=== PATIENT | male | born 1955 | race Caucasian/White ===

== ENCOUNTER 2016-12-12 | Emergency (ER) | payer SELFPAY ==
[~2016-12-12] VITALS: Ht 185.4 cm; Wt 106.6 kg
[2016-12-12 03:46] VITALS: BP 139/90
== END 2016-12-12 03:46 | disposition home or self-care (01) ==
LOC: ER 00:11
DX: S86.912A Strain of unspecified muscle(s) and tendon(s) at lower leg level, left leg, initial encounter (principal); W01.0XXA Fall on same level from slipping, tripping and stumbling without subsequent striking against object, initial encounter; Y93.89 Activity, other specified; Y99.8 Other external cause status; Y92.89 Other specified places as the place of occurrence of the external cause
CPT/HCPCS: 73562

== ENCOUNTER 2021-03-03 09:43 | Emergency (ER) | payer BC, OTHER ==
[~2021-03-03] VITALS: Ht 188 cm; Wt 114.8 kg
[2021-03-03 09:48] VITALS: BP 159/98
== END 2021-03-03 11:35 | disposition home or self-care (01) ==
LOC: ER 09:43
DX: S86.912A Strain of unspecified muscle(s) and tendon(s) at lower leg level, left leg, initial encounter (principal); X58.XXXA Exposure to other specified factors, initial encounter; Y93.89 Activity, other specified; Y99.8 Other external cause status; Y92.89 Other specified places as the place of occurrence of the external cause
CPT/HCPCS: 73562

== ENCOUNTER 2024-01-13 12:58 | Emergency (ER) | payer BC, OTHER ==
[~2024-01-13] VITALS: Ht 185.4 cm; Wt 107.0 kg
[2024-01-13 13:34] LABS: Basophils # (auto) 0.1 10 ^3/uL (0-0.2); Eosinophils # (auto) 0.3 10 ^3/uL (0-0.8); Eosinophils % (auto) 3.2 % (0.0-7.0); Hematocrit 45.8 % (41.0-53.0); Hemoglobin 15.7 g/dL (13.5-17.5); Lymphocytes # (auto) 2.3 10 ^3/uL (0.4-5.4); Lymphocytes % (auto) 24.5 % (10.0-50.0); Mean Corpuscular Hemoglobin 32.5 pg (28.0-32.0); Mean Corpuscular Hgb Conc. 34.3 g/dL (32.0-36.0); Monocytes # (auto) 0.7 10 ^3/uL (0-1.3); Monocytes % (auto) 7.9 % (0.0-12.0); Neutrophils # (auto) 5.9 10 ^3/uL (1.6-8.6); Neutrophils % (auto) 63.4 % (37.0-80.0); Red Blood Cells 4.82 10^6/uL (4.5-5.90); Red Cell Distribution Width 13.4 % (11.8-14.3); White Blood Cell 9.3 10^3/uL (4.4-10.8)
[2024-01-13 13:43] LABS: Chloride 109 mmol/L (98-107); Sodium 141 mmol/L (136-145)
[2024-01-13 13:44] LABS: Anion Gap 8 (5-15); Calcium 9.4 mg/dL (8.5-10.1); Carbon Dioxide 24 mmol/L (20-30)
[2024-01-13 13:49] LABS: BUN/Creatinine Ratio 15.7 (10.0-20.0); Blood Urea Nitrogen 17 mg/dL (9-23); Glucose 103 mg/dL (74-106)
[2024-01-13] MEDS: MECLIZINE HCL 25 MG TAB PO ONE (14:08)
[2024-01-13] MEDS: cloNIDine HCL 0.1 MG TAB PO ONE (14:08)
[2024-01-13] MEDS ORDERED: MECL1TAB42 PO (14:11)
[2024-01-13 15:13] VITALS: BP 146/91; PULSE 69; RESP 18; TEMP 98.2; O2SAT 97
== END 2024-01-13 15:15 | disposition home or self-care (01) ==
LOC: ER 12:58
DX: H81.90 Unspecified disorder of vestibular function, unspecified ear (principal); R51.9 Headache, unspecified
CPT/HCPCS: 36415; 70450; 80048; 84484; 85025; 93005; 99284; J8597

== ENCOUNTER 2024-03-04 20:02 | Inpatient (IN) | payer OTHER ==
[~2024-03-04] VITALS: Ht 185.4 cm; Wt 110.5 kg
[~2024-03-04 20:02] MED LIST: MECL1TAB42 PO
[2024-03-04 20:30] VITALS: PULSE 93; RESP 15; O2SAT 97
[2024-03-04 21:06] LABS: Basophils # (auto) 0.1 10 ^3/uL (0-0.2); Basophils % (auto) 1.2 % (0.0-2.0); Eosinophils # (auto) 0.3 10 ^3/uL (0-0.8); Eosinophils % (auto) 3.7 % (0.0-7.0); Hematocrit 43.6 % (41.0-53.0); Hemoglobin 14.8 g/dL (13.5-17.5); Lymphocytes # (auto) 2.7 10 ^3/uL (0.4-5.4); Lymphocytes % (auto) 32.2 % (10.0-50.0); Mean Corpuscular Hemoglobin 32.5 pg (28.0-32.0); Mean Corpuscular Volume 95.4 fL (80.0-100.0); Monocytes # (auto) 0.7 10 ^3/uL (0-1.3); Monocytes % (auto) 8.8 % (0.0-12.0); Neutrophils # (auto) 4.5 10 ^3/uL (1.6-8.6); Neutrophils % (auto) 54.1 % (37.0-80.0); Red Blood Cells 4.57 10^6/uL (4.5-5.90); Red Cell Distribution Width 13.1 % (11.8-14.3); White Blood Cell 8.4 10^3/uL (4.4-10.8)
[2024-03-04 21:18] LABS: INR 1.01 (0.9-1.15); Partial Thromboplastin Time 25.6 SEC (24.5-34.5); Prothrombin Time 10.7 sec (9.3-11.8)
[2024-03-04 21:25] LABS: Alanine Aminotransferase 30 U/L (7-40); Alkaline Phosphatase 71 U/L (46-116); Anion Gap 7 (5-15); Aspartate Aminotransferase 27 U/L (13-40); BUN/Creatinine Ratio 15.1 (10.0-20.0); Bilirubin, Total 0.4 mg/dL (0.2-1.0); Blood Urea Nitrogen 16 mg/dL (9-23); Calcium 9.1 mg/dL (8.5-10.1); Carbon Dioxide 26 mmol/L (20-30); Chloride 108 mmol/L (98-107); Glucose 150 mg/dL (74-106); Potassium 3.8 mmol/L (3.5-5.1); Sodium 141 mmol/L (136-145); Total Protein 6.8 g/dL (5.7-8.2)
[2024-03-04 21:29] LABS: Lactic Acid w/Reflex 2.1 mmol/L (0.4-2.0)
[2024-03-04 23:02] LABS: Urine Bacteria None Seen /hpf (None Seen)
[2024-03-04 23:13] LABS: Urine Blood Negative /uL (Negative); Urine Clarity Clear (Clear); Urine Color Light-Yellow (Yellow); Urine Protein, UAD Negative (Negative); Urine Specific Gravity 1.018 (1.001-1.035); Urine Urobilinogen Normal (Negative); Urine WBC 5 /hpf (0 - 3)
[2024-03-04] MEDS ORDERED: ACETAMINOPHEN 325 MG TAB PO PRN (23:15)
[2024-03-04] MEDS ORDERED: DEXTROSE (50%) 50ML SYRG IV PRN (23:15)
[2024-03-04] MEDS ORDERED: ONDANSETRON HCL 4 MG/2 ML VIAL IV PRN (23:15)
[2024-03-04 23:32] LABS: Amphetamine Screen, Urine Neg (NEGATIVE); Barbiturate Scree,Urine Neg (NEGATIVE); Benzodiazephine Screen, Urine Neg (NEGATIVE)
[2024-03-04 23:33] LABS: Cannabinoid Screen, Urine Neg (NEGATIVE); Cocaine Screen, Urine Neg (NEGATIVE); Opiate Scree,Urine Neg (NEGATIVE); Phencyclidine Screen, Urine Neg (NEGATIVE)
[2024-03-05] VITALS (9 sets, daily range): BP systolic 124–164; BP diastolic 72–100; PULSE 62–92; RESP 10–20; TEMP 97.7–98.3; O2SAT 94–97
[2024-03-05] MEDS ORDERED: FINA5TAB4 PO (04:36)
[2024-03-05] MEDS ORDERED: METF-370 PO (04:36)
[2024-03-05] MEDS ORDERED: TAMS0.4C36 PO (04:36)
[2024-03-05] MEDS: ACCU-CHEK COMFORT CURVE STRIP VI SCH (06:33)
[2024-03-05] MEDS: InsuLIN REG 1unit/0.01ml Soln (100units/ml) SC SCH (06:34)
[2024-03-05 06:55] LABS: Magnesium 1.7 mg/dL (1.6-2.6)
[2024-03-05 07:19] LABS: Anion Gap 7 (5-15); Carbon Dioxide 26 mmol/L (20-30); Chloride 109 mmol/L (98-107); Potassium 3.9 mmol/L (3.5-5.1); Sodium 142 mmol/L (136-145)
[2024-03-05 07:20] LABS: Calcium 8.9 mg/dL (8.5-10.1)
[2024-03-05 07:25] LABS: BUN/Creatinine Ratio 12.4 (10.0-20.0); Blood Urea Nitrogen 12 mg/dL (9-23); Glucose 114 mg/dL (74-106)
[2024-03-05] MEDS: ENOXAPARIN SOD 40 MG/0.4 ML SYRINGE SC SCH (09:19)
[2024-03-05] MEDS: PANTOPRAZOLE 40 MG/10 ML VIAL INJ IV SCH (09:20)
[2024-03-05] MEDS: TAMSULOSIN HYDROCHLORIDE 0.4 MG CAP PO SCH (17:48)
[2024-03-05] MEDS ORDERED: GABA-1308 PO (17:49)
[2024-03-06] VITALS (8 sets, daily range): BP systolic 122–158; BP diastolic 72–82; PULSE 68–78; RESP 18–22; TEMP 36.4; O2SAT 93–98
[2024-03-06] MEDS ORDERED: hydrALAZINE HCL 20 MG/ML VL IV PRN (09:00)
[2024-03-06] MEDS: LISINOPRIL 20 MG TAB PO SCH (09:57)
[2024-03-06] MEDS: FAMOTIDINE 20 MG TAB PO SCH (09:57)
[2024-03-06] MEDS: FINASTERIDE 5 MG TAB PO SCH (09:58)
[2024-03-06] MEDS: MAGNESIUM SULFATE 1GM/100ML 100 ML IV ONE (09:58)
[2024-03-06] MEDS ORDERED: LOS25T PO (15:07)
[2024-03-07 12:24] LABS: Hepatitis B Surface Antigen Negative (Negative); Hepatitis C Antibody Negative (Negative)
== END 2024-03-06 18:21 | disposition home or self-care (01) | DRG 305 ==
LOC: ER 20:02 → EDBD 20:02 → TELE 23:11 → TELE-WESTW 23:11
PROVIDERS: ADMIT Nurse Practitioner Family; ATTEND Nurse Practitioner Family
DX: I16.0 Hypertensive urgency (principal); I44.2 Atrioventricular block, complete; R00.1 Bradycardia, unspecified; E11.9 Type 2 diabetes mellitus without complications; N40.0 Benign prostatic hyperplasia without lower urinary tract symptoms; E66.9 Obesity, unspecified; Z87.442 Personal history of urinary calculi; Z87.891 Personal history of nicotine dependence; Z79.84 Long term (current) use of oral hypoglycemic drugs; Z82.3 Family history of stroke; Z82.49 Family history of ischemic heart disease and other diseases of the circulatory system; Z68.32 Body mass index [BMI] 32.0-32.9, adult
CPT/HCPCS: 36415; 70450; 71045; 80048; 80053; 80307; 81001; 82962; 83605; 83735; 83880; 84439; 84443; 84484; 85025; 85610; 85730; 86803; 87340; 93005; 93306; 97163; C9113; G0378; J1815